=== PATIENT | female | born 1940 | race Caucasian/White ===

== ENCOUNTER 2018-11-07 10:38 | Inpatient (IN) | payer MEDICARE, OTHER ==
[~2018-11-07] VITALS: Ht 147.3 cm; Wt 53.6 kg
[2018-11-07 11:30] LABS: BASOPHILS # (AUTO) 0.1 X10'3 (0-0.2); BASOPHILS % (AUTO) 0.6 % (0-1); EOSINOPHILS % (AUTO) 0.3 % (0-6); HEMATOCRIT 39.8 % (35.0-45.0); HEMOGLOBIN 13.3 g/dl (12.0-16.0); LYMPHOCYTES # (AUTO) 1.5 X10'3 (1.1-4.8); LYMPHOCYTES % (AUTO) 15.1 % (21-51); MEAN CORPUSCULAR HEMOGLOBIN 33.7 PG (27.0-31.0); MEAN CORPUSCULAR HGB CONC 33.5 g/dL (33.0-36.5); MEAN CORPUSCULAR VOLUME 100.5 FL (78-98); MEAN PLATELET VOLUME 11.3 FL (7.4-10.4); MONOCYTES # (AUTO) 0.7 X10'3 (0-0.9); MONOCYTES % (AUTO) 6.6 % (2-12); NEUTROPHILS # (AUTO) 7.8 X10'3 (1.8-7.7); NEUTROPHILS % (AUTO) 77.4 % (42-75); PLATELET COUNT 131 X10'3 (140-440); RED BLOOD COUNT 3.96 X10'6 (4.20-5.60); RED CELL DISTRIBUTION WIDTH 13.3 % (11.5-14.5)
[2018-11-07 11:43] LABS: INR 1.1 INR; PARTIAL THROMBOPLASTIN TIME 25 SECONDS (22-32)
[2018-11-07 11:44] LABS: ALANINE AMINOTRANSFERASE 16 U/L (12-78); ALBUMIN 3.8 G/DL (3.4-5.0); ALBUMIN/GLOBULIN RATIO 1.6 (1.1-1.5); ALKALINE PHOSPHATASE 54 IU/L (46-116); ANION GAP 7 (8-16); ASPARTATE AMINO TRANSFERASE 24 U/L (10-37); BILIRUBIN,TOTAL 0.5 MG/DL (0.1-1.0); BLOOD UREA NITROGEN 13 MG/DL (7-18); BUN/CREATININE RATIO 16.5 (6.6-38.0); CALCIUM 8.8 MG/DL (8.5-10.1); CHLORIDE 107 MMOL/L (99-107); CREATININE 0.79 MG/DL (0.40-0.90); GLUCOSE 133 MG/DL (70-104); SODIUM 143 MMOL/L (135-145); TOTAL CARBON DIOXIDE 29.4 MMOL/L (24-32); TOTAL PROTEIN 6.2 G/DL (6.4-8.2); eGFR 71 ML/MIN
[2018-11-07] MEDS ORDERED: LIDOcaine 1%/PF 5ML 10 MG/ML VIAL ONE (12:47)
[2018-11-07 13:07] VITALS: BP 164/92
[2018-11-07 13:29] VITALS: BP 149/76
[2018-11-07] MEDS ORDERED: morphine 4 MG/ML inj SYRINge IV ONE (13:50)
[2018-11-07] MEDS ORDERED: morphine 2 MG/ML inj. syringe IV ONE (13:55)
[2018-11-07] MEDS ORDERED: acetaminophen 325mg tablet PO PRN (14:40)
[2018-11-07] MEDS ORDERED: mag hydrox/Alum hydrox/simeth 30ml oral suspension PO PRN (14:40)
[2018-11-07] MEDS ORDERED: magnesium hydroxide 30ml (MOM) UD suspension PO PRN (14:40)
[2018-11-07] MEDS: normal saline 1000ml 1,000 ML IV SCH (14:53)
[2018-11-07] MEDS ORDERED: LOSA25TA41 PO (15:03)
[2018-11-07] MEDS ORDERED: MULT1TAB74 PO (15:03)
[2018-11-07] MEDS ORDERED: SERT50TA10 PO (15:03)
[2018-11-07] MEDS ORDERED: CALC-212 PO (15:03)
[2018-11-07] MEDS ORDERED: PANT40TA4 PO (15:03)
[2018-11-07] MEDS ORDERED: TRAZ-219 PO (15:03)
[2018-11-07] MEDS ORDERED: TRAM50TA2 PO (15:03)
[2018-11-07] MEDS ORDERED: APIX5TAB3 PO (15:03)
[2018-11-07] MEDS ORDERED: CALC-854 PO (15:03)
[2018-11-07] MEDS ORDERED: AMLO10TA13 PO (15:03)
[2018-11-07] MEDS ORDERED: ATOR20TA66 PO (15:03)
--- NOTE | 2018-11-07 15:10 | NUR ---
doing well after chest tube placement
--- NOTE | 2018-11-07 16:40 | NUR ---
Patient in room PCU 3023. I have received report from karlie FRIED and had the opportunity to ask questions and assume patient care. vital signs obtained, pt is on 2L NC, chest tube to wall suction with dress CDI, pt alert oriented X4, gave pt call light and oriented pt to room. will continue to monitor.
[2018-11-07 16:45] VITALS: BP 151/73
[2018-11-07] MEDS: HYDROcodone/acetaminophen 5mg/325mg tablet PO PRN (17:15)
[2018-11-07] MEDS ORDERED: non-formulary drug (Trazodone HCl 1 TAB) PO PRN (17:30)
[2018-11-07] MEDS ORDERED: traMADol 50MG tablet PO PRN (17:30)
[2018-11-07] MEDS ORDERED: traZODone 50mg tablet PO PRN (17:35)
--- NOTE | 2018-11-07 18:17 | NUR ---
Problems reprioritized. Patient report given, questions answered & plan of care reviewed with Jackie FRIED.
--- NOTE | 2018-11-07 18:19 | NUR ---
PAGER ID: [phone] MESSAGE: [id number] Soo Nuñez Pt rec 2 mg of Morphine IV push 4 hours ago, and 5 mg of [place], pt still complaining of 8 out of 10 pain. Please call Yelena# [phone] Addendum: 11/07/18 at 1829 by Claude Hunter RN DR. Ramsey called back, new order for morphine PRN.
--- NOTE | 2018-11-07 18:20 | NUR ---
Patient in room PCU 3023. I have received report from Yelena FRIED & Iggy RN and had the opportunity to ask questions and assume patient care.
--- NOTE | 2018-11-07 18:23 | NUR ---
Problems reprioritized. Patient report given, questions answered & plan of care reviewed with Joanna FRIED.
[2018-11-07] MEDS ORDERED: morphine 2 MG/ML inj. syringe IV PRN (18:30)
[2018-11-07 19:00] VITALS: BP 110/64
[2018-11-07 23:00] VITALS: BP 119/54
[2018-11-08] MEDS: HYDROcodone/acetaminophen 5mg/325mg tablet PO PRN ×5 (02:45→23:50)
[2018-11-08 03:00] VITALS: BP 123/58
[2018-11-08] MEDS: normal saline 1000ml 1,000 ML IV SCH ×2 (05:30→19:54)
[2018-11-08 05:47] LABS: BASOPHILS # (AUTO) 0.1 X10'3 (0-0.2); BASOPHILS % (AUTO) 0.8 % (0-1); EOSINOPHILS # (AUTO) 0.1 X10'3 (0-0.9); EOSINOPHILS % (AUTO) 1.3 % (0-6); HEMATOCRIT 36.4 % (35.0-45.0); HEMOGLOBIN 12.2 g/dl (12.0-16.0); LYMPHOCYTES # (AUTO) 1.4 X10'3 (1.1-4.8); MEAN CORPUSCULAR HEMOGLOBIN 33.2 PG (27.0-31.0); MEAN CORPUSCULAR HGB CONC 33.5 g/dL (33.0-36.5); MEAN CORPUSCULAR VOLUME 98.8 FL (78-98); MEAN PLATELET VOLUME 11.3 FL (7.4-10.4); MONOCYTES # (AUTO) 0.5 X10'3 (0-0.9); MONOCYTES % (AUTO) 8.5 % (2-12); NEUTROPHILS # (AUTO) 4.3 X10'3 (1.8-7.7); NEUTROPHILS % (AUTO) 67.4 % (42-75); PLATELET COUNT 107 X10'3 (140-440); RED BLOOD COUNT 3.69 X10'6 (4.20-5.60); RED CELL DISTRIBUTION WIDTH 12.9 % (11.5-14.5); WHITE BLOOD COUNT 6.4 X10'3 (4.5-11.0)
[2018-11-08 05:57] LABS: ALBUMIN 3.1 G/DL (3.4-5.0); ANION GAP 5 (8-16); BLOOD UREA NITROGEN 8 MG/DL (7-18); BUN/CREATININE RATIO 14.3 (6.6-38.0); CALCIUM 8.4 MG/DL (8.5-10.1); CHLORIDE 108 MMOL/L (99-107); CREATININE 0.56 MG/DL (0.40-0.90); GLUCOSE 86 MG/DL (70-104); POTASSIUM 3.6 MMOL/L (3.5-5.1); SODIUM 141 MMOL/L (135-145); TOTAL CARBON DIOXIDE 28.4 MMOL/L (24-32); eGFR > 90 ML/MIN
--- NOTE | 2018-11-08 06:10 | NUR ---
Patient in room PCU 3023. I have received report from Joanna FRIED and had the opportunity to ask questions and assume patient care. Pt resting in no apparent distress, chest tube dressing and surgical wound dressing CDI.
--- NOTE | 2018-11-08 06:15 | NUR ---
Problems reprioritized. Patient report given, questions answered & plan of care reviewed with Yelena FRIED & Iggy RN.
[2018-11-08 06:52] LABS: LARGE PLATELETS FEW; PLATELET ESTIMATE DECREASED
[2018-11-08 07:00] VITALS: BP 125/66
[2018-11-08] MEDS: pantoprazole 40mg Tablet.DR PO SCH (07:23)
[2018-11-08] MEDS: amLODIPine 5mg tablet PO SCH (07:23)
[2018-11-08] MEDS: sertraline 50mg tablet PO SCH (07:24)
[2018-11-08] MEDS ORDERED: non-formulary drug (Multivitamins 1 TAB) PO SCH (08:00)
[2018-11-08] MEDS ORDERED: CALCIUM CITRATE PO SCH (08:00)
[2018-11-08] MEDS ORDERED: VITAMIN D3 PO SCH (08:00)
[2018-11-08] MEDS ORDERED: atorvastatin 20mg tablet PO SCH (08:00)
[2018-11-08] MEDS ORDERED: calcium carbonate/vitamin D3 tablet PO SCH (08:00)
[2018-11-08] MEDS ORDERED: non-formulary drug (Calcium Cmb 2/Mag Cmb 12/Vitd3 (Calcium 500 Mg Tablet) 1 TAB) PO SCH (08:00)
[2018-11-08] MEDS ORDERED: losartan 25mg tablet PO SCH (08:00)
[2018-11-08] MEDS ORDERED: multivitamins, therapeutics tablet PO SCH (08:00)
[2018-11-08] MEDS ORDERED: non-formulary drug (Amlodipine Besylate 1 TAB) PO SCH (08:00)
[2018-11-08 11:00] VITALS: BP 122/59
[2018-11-08 15:00] VITALS: BP 121/63
--- NOTE | 2018-11-08 16:31 | NUR ---
PAGER ID: [phone] MESSAGE: [phone] Soo Nuñez pt very upset needs update about chest tube clamp and x-ray, chest tube has not yet been clamped. Iggy RN [id number]
--- NOTE | 2018-11-08 18:00 | NUR ---
Spoke to Dr. Jj from IR. Per Dr. Jj, day shift nurse for tomorrow is to clamp pt's chest tube at 0800 and repeat chest x-ray at 0900 (one hour later). Dr. Jj stated that he will be in around 0900 tomorrow to read chest x-ray. I put in misc. nursing order and order for chest x-ray for tomorrow at 0900.
--- NOTE | 2018-11-08 18:15 | NUR ---
Patient in room PCU 3023. I have received report from Yelena FRIED & Iggy RN and had the opportunity to ask questions and assume patient care.
--- NOTE | 2018-11-08 18:22 | NUR ---
Problems reprioritized. Patient report given, questions answered & plan of care reviewed with Joanna FRIED.
[2018-11-08 19:00] VITALS: BP 133/66
[2018-11-08] MEDS: calcium carbonate/vitamin D3 tablet PO SCH (20:20)
[2018-11-08] MEDS: atorvastatin 20mg tablet PO SCH (20:20)
[2018-11-08] MEDS: multivitamins, therapeutics tablet PO SCH (20:20)
[2018-11-08] MEDS: losartan 25mg tablet PO SCH (20:20)
[2018-11-08 23:00] VITALS: BP 137/75
[2018-11-09 03:00] VITALS: BP 156/74
[2018-11-09 06:13] LABS: ALBUMIN 3.1 G/DL (3.4-5.0); ANION GAP 8 (8-16); BLOOD UREA NITROGEN 5 MG/DL (7-18); BUN/CREATININE RATIO 12.5 (6.6-38.0); CALCIUM 8.5 MG/DL (8.5-10.1); CHLORIDE 106 MMOL/L (99-107); GLUCOSE 84 MG/DL (70-104); POTASSIUM 3.6 MMOL/L (3.5-5.1); SODIUM 142 MMOL/L (135-145); TOTAL CARBON DIOXIDE 28.4 MMOL/L (24-32); eGFR > 90 ML/MIN
[2018-11-09 06:23] LABS: BASOPHILS % (AUTO) 0.7 % (0-1); EOSINOPHILS # (AUTO) 0.1 X10'3 (0-0.9); EOSINOPHILS % (AUTO) 1.6 % (0-6); HEMATOCRIT 37.8 % (35.0-45.0); HEMOGLOBIN 12.7 g/dl (12.0-16.0); LYMPHOCYTES # (AUTO) 1.3 X10'3 (1.1-4.8); MEAN CORPUSCULAR HEMOGLOBIN 33.4 PG (27.0-31.0); MEAN CORPUSCULAR HGB CONC 33.6 g/dL (33.0-36.5); MEAN CORPUSCULAR VOLUME 99.4 FL (78-98); MONOCYTES # (AUTO) 0.5 X10'3 (0-0.9); MONOCYTES % (AUTO) 8.3 % (2-12); NEUTROPHILS # (AUTO) 4.1 X10'3 (1.8-7.7); NEUTROPHILS % (AUTO) 68.4 % (42-75); PLATELET COUNT 108 X10'3 (140-440)
[2018-11-09 06:30] VITALS: BP 156/74
--- NOTE | 2018-11-09 06:40 | NUR ---
Patient in room PCU 3023. I have received report from CORKY Marshall and had the opportunity to ask questions and assume patient care.
[2018-11-09] MEDS: HYDROcodone/acetaminophen 5mg/325mg tablet PO PRN ×4 (07:12→20:38)
[2018-11-09 07:14] LABS: LARGE PLATELETS FEW; PLATELET ESTIMATE DECREASED
[2018-11-09] MEDS: amLODIPine 5mg tablet PO SCH (08:09)
[2018-11-09] MEDS: pantoprazole 40mg Tablet.DR PO SCH (08:09)
[2018-11-09] MEDS: sertraline 50mg tablet PO SCH (08:09)
--- NOTE | 2018-11-09 09:12 | NUR ---
CXRAY TAKEN. PT C/O SOB. O2 SAT 93 % ON 3L NC. RADIOLOGIST CALLED AND REPORTED LARGE L PNEUMOTHORAX. DR COX INFORMED. CT UNCLAMPED AND AGAIN PLACED ON SUCTION.
[2018-11-09] MEDS: normal saline 1000ml 1,000 ML IV SCH (09:30)
[2018-11-09] MEDS: ondansetron/PF 4mg/2ml inj IV PRN (09:35)
[2018-11-09 11:30] VITALS: BP 99/80
[2018-11-09 15:00] VITALS: BP 121/88
--- NOTE | 2018-11-09 18:10 | NUR ---
Problems reprioritized. Patient report given, questions answered & plan of care reviewed with CORKY Marshall.
[2018-11-09 19:00] VITALS: BP 134/59
[2018-11-09] MEDS: losartan 25mg tablet PO SCH (20:39)
[2018-11-09] MEDS: atorvastatin 20mg tablet PO SCH (20:42)
[2018-11-09] MEDS: multivitamins, therapeutics tablet PO SCH (20:42)
[2018-11-09] MEDS: calcium carbonate/vitamin D3 tablet PO SCH (20:42)
[2018-11-09 23:00] VITALS: BP 125/58
[2018-11-10 03:00] VITALS: BP 149/76
--- NOTE | 2018-11-10 04:30 | NUR ---
Patient went into AFib with heart rate in 130s-140s. Patient asymptomatic at this time. Dr. Friedman was notified and ordered a 10mg IVPush of Cardizem. Will continue to monitor.
[2018-11-10] MEDS ORDERED: diltiazem 5mg/ml 5ml inj. IV STA (04:36)
--- NOTE | 2018-11-10 05:00 | NUR ---
Patient heart rate up to 150-160s. Patient nauseous, SOB, and decreased BP 73/45. Dr. Friedman notified and came to lay eyes on patient. 500cc bolus of NS ordered. Manual BP taken, 108/62. Cardizem drip started at 5mcg. Will continue to monitor.
[2018-11-10] MEDS ORDERED: normal saline 500ml IV soln 500 ML IV ONE (05:15)
[2018-11-10] MEDS ORDERED: diltiazem-D5W 125mg/125ml 125 ML IV SCH (05:20)
[2018-11-10] MEDS ORDERED: proCHLORperazine 10 MG/2 ml inj IV PRN (05:20)
[2018-11-10] MEDS: ondansetron/PF 4mg/2ml inj IV PRN (05:22)
--- NOTE | 2018-11-10 06:05 | NUR ---
Problems reprioritized. Patient report given, questions answered & plan of care reviewed with Leanne FRIED.
[2018-11-10 06:14] LABS: BASOPHILS % (AUTO) 0.6 % (0-1); EOSINOPHILS # (AUTO) 0.2 X10'3 (0-0.9); EOSINOPHILS % (AUTO) 2.5 % (0-6); HEMATOCRIT 40.5 % (35.0-45.0); HEMOGLOBIN 13.5 g/dl (12.0-16.0); LYMPHOCYTES # (AUTO) 1.6 X10'3 (1.1-4.8); LYMPHOCYTES % (AUTO) 22.1 % (21-51); MEAN CORPUSCULAR HEMOGLOBIN 33.4 PG (27.0-31.0); MEAN CORPUSCULAR HGB CONC 33.5 g/dL (33.0-36.5); MEAN CORPUSCULAR VOLUME 99.8 FL (78-98); MEAN PLATELET VOLUME 11.8 FL (7.4-10.4); MONOCYTES # (AUTO) 0.5 X10'3 (0-0.9); MONOCYTES % (AUTO) 6.9 % (2-12); NEUTROPHILS # (AUTO) 4.9 X10'3 (1.8-7.7); NEUTROPHILS % (AUTO) 67.9 % (42-75); PLATELET COUNT 118 X10'3 (140-440); RED BLOOD COUNT 4.06 X10'6 (4.20-5.60); RED CELL DISTRIBUTION WIDTH 13.2 % (11.5-14.5); WHITE BLOOD COUNT 7.2 X10'3 (4.5-11.0)
[2018-11-10 06:18] LABS: ALBUMIN 3.2 G/DL (3.4-5.0); ANION GAP 11 (8-16); BLOOD UREA NITROGEN 10 MG/DL (7-18); BUN/CREATININE RATIO 18.9 (6.6-38.0); CALCIUM 8.8 MG/DL (8.5-10.1); CHLORIDE 105 MMOL/L (99-107); CREATININE 0.53 MG/DL (0.40-0.90); GLUCOSE 111 MG/DL (70-104); POTASSIUM 3.4 MMOL/L (3.5-5.1); SODIUM 141 MMOL/L (135-145); TOTAL CARBON DIOXIDE 25.3 MMOL/L (24-32); eGFR > 90 ML/MIN
[2018-11-10 07:00] VITALS: BP 96/51
[2018-11-10 07:30] LABS: LARGE PLATELETS FEW; PLATELET ESTIMATE DECREASED
[2018-11-10] MEDS: pantoprazole 40mg Tablet.DR PO SCH (07:41)
[2018-11-10] MEDS: sertraline 50mg tablet PO SCH (07:41)
[2018-11-10] MEDS: amLODIPine 5mg tablet PO SCH (07:42)
[2018-11-10] MEDS ORDERED: potassium Cl 40MEQ/NS 500ml 500 ML IV PRN ×2 (09:15)
[2018-11-10] MEDS ORDERED: potassium Cl 20 mEq SR tablet PO PRN (09:15)
[2018-11-10] MEDS: metoprolol tartrate 25mg tablet PO SCH ×2 (10:22→21:16)
[2018-11-10 11:00] VITALS: BP 118/66
--- NOTE | 2018-11-10 13:25 | NUR ---
Patient in room PCU 3023. I have received report from Leanne FRIED and had the opportunity to ask questions and assume patient care.
[2018-11-10] MEDS: potassium Cl 20 mEq SR tablet PO PRN (13:36)
[2018-11-10] MEDS: HYDROcodone/acetaminophen 5mg/325mg tablet PO PRN ×2 (13:37→21:16)
--- NOTE | 2018-11-10 13:37 | NUR ---
Problems reprioritized. Patient report given, questions answered & plan of care reviewed with CORKY Cueto.
[2018-11-10 15:00] VITALS: BP 111/62
[2018-11-10 18:00] VITALS: BP 137/66
--- NOTE | 2018-11-10 18:11 | NUR ---
Problems reprioritized. Patient report given, questions answered & plan of care reviewed with Vee FRIED . Patient stable at transfer of care.
--- NOTE | 2018-11-10 19:08 | NUR ---
Patient in room PCU 3023. I have received report from Nory Noonan and had the opportunity to ask questions and assume patient care.
[2018-11-10] MEDS: calcium carbonate/vitamin D3 tablet PO SCH (21:00)
[2018-11-10] MEDS: multivitamins, therapeutics tablet PO SCH (21:00)
[2018-11-10] MEDS: atorvastatin 20mg tablet PO SCH (21:16)
[2018-11-10] MEDS: losartan 25mg tablet PO SCH (21:18)
[2018-11-10 23:00] VITALS: BP 131/65
[2018-11-11 03:00] VITALS: BP 126/63
[2018-11-11] MEDS: potassium Cl 20 mEq SR tablet PO PRN (03:11)
[2018-11-11 05:35] LABS: BASOPHILS % (AUTO) 0.9 % (0-1); EOSINOPHILS # (AUTO) 0.2 X10'3 (0-0.9); EOSINOPHILS % (AUTO) 4.1 % (0-6); HEMATOCRIT 38.4 % (35.0-45.0); LYMPHOCYTES # (AUTO) 1.3 X10'3 (1.1-4.8); LYMPHOCYTES % (AUTO) 22.9 % (21-51); MEAN CORPUSCULAR HEMOGLOBIN 33.6 PG (27.0-31.0); MEAN CORPUSCULAR HGB CONC 33.8 g/dL (33.0-36.5); MEAN CORPUSCULAR VOLUME 99.3 FL (78-98); MEAN PLATELET VOLUME 11.6 FL (7.4-10.4); MONOCYTES # (AUTO) 0.5 X10'3 (0-0.9); MONOCYTES % (AUTO) 8.9 % (2-12); NEUTROPHILS # (AUTO) 3.6 X10'3 (1.8-7.7); NEUTROPHILS % (AUTO) 63.2 % (42-75); PLATELET COUNT 125 X10'3 (140-440); RED BLOOD COUNT 3.86 X10'6 (4.20-5.60); RED CELL DISTRIBUTION WIDTH 12.9 % (11.5-14.5); WHITE BLOOD COUNT 5.7 X10'3 (4.5-11.0)
[2018-11-11 05:44] LABS: ALBUMIN 3.1 G/DL (3.4-5.0); ANION GAP 4 (8-16); BLOOD UREA NITROGEN 10 MG/DL (7-18); BUN/CREATININE RATIO 18.2 (6.6-38.0); CALCIUM 8.9 MG/DL (8.5-10.1); CHLORIDE 106 MMOL/L (99-107); CREATININE 0.55 MG/DL (0.40-0.90); GLUCOSE 89 MG/DL (70-104); POTASSIUM 4.2 MMOL/L (3.5-5.1); SODIUM 141 MMOL/L (135-145); TOTAL CARBON DIOXIDE 30.7 MMOL/L (24-32); eGFR > 90 ML/MIN
[2018-11-11 06:00] VITALS: BP 128/58
--- NOTE | 2018-11-11 06:15 | NUR ---
Patient in room PCU 3023. I have received report from Vee FRIED and had the opportunity to ask questions and assume patient care.
--- NOTE | 2018-11-11 06:24 | NUR ---
Problems reprioritized. Patient report given, questions answered & plan of care reviewed with Lisbeth FRIED.
[2018-11-11] MEDS: metoprolol tartrate 25mg tablet PO SCH (07:21)
[2018-11-11] MEDS: pantoprazole 40mg Tablet.DR PO SCH (07:22)
[2018-11-11] MEDS: HYDROcodone/acetaminophen 5mg/325mg tablet PO PRN ×2 (07:22→12:18)
[2018-11-11] MEDS: sertraline 50mg tablet PO SCH (07:23)
[2018-11-11] MEDS: amLODIPine 5mg tablet PO SCH (07:23)
--- NOTE | 2018-11-11 10:00 | NUR ---
Paged Dr Ramsey "PAGER ID: [phone] MESSAGE: [phone] Lisbeth [id number] Soo Nuñez report is up on the CXR."
[2018-11-11 11:00] VITALS: BP 115/60
[2018-11-11] MEDS ORDERED: HYDR-4383 PO (11:42)
[2018-11-11] MEDS ORDERED: METO-395 PO (11:42)
--- NOTE | 2018-11-11 13:01 | NUR ---
Paged Dr Ramsey "PAGER ID: [phone] MESSAGE: [phone] Lisbeth [phone] Soo Nuñez Chest tube was removed, follow up CXR was completed and has been read. I didn't want to discharge her until I got the okay after the follow up xray"
--- NOTE | 2018-11-11 14:24 | NUR ---
Paged Dr Ramsey "PAGER ID: [phone] MESSAGE: [phone] Lisbeth [phone] Soo Nuñez I need a triplicate for patient's [place] order for DC and want to know when the patient should restart her eliquis now that the chest tube is out"
--- NOTE | 2018-11-11 15:54 | NUR ---
Patient discharged home in stable condition. IV removed, cannula intact. Tele monitor DCed and returned to telecommunications analyst. Pacemaker Site and Chest tube site dressings changed under sterile technique. All discharge instructions reviewed with no further questions. Patient taken to personal vehicle via wheel chair with all belongings on person including [place] 5/325 prescription.
== END 2018-11-11 15:34 | disposition home or self-care (01) | DRG 201 ==
LOC: ER 10:38 → PCU 3S 16:31 → CMPBEDREQ 11-10 00:21
PROVIDERS: ADMIT Family Medicine; ATTEND Family Medicine
PROC: 0W9B30Z Drainage of Left Pleural Cavity with Drainage Device, Percutaneous Approach (ICD-10-PCS; principal; 2018-11-07)
DX: J95.811 Postprocedural pneumothorax (principal); I48.91 Unspecified atrial fibrillation; I10 Essential (primary) hypertension; E78.5 Hyperlipidemia, unspecified; F32.9 Major depressive disorder, single episode, unspecified; F17.210 Nicotine dependence, cigarettes, uncomplicated; K21.9 Gastro-esophageal reflux disease without esophagitis; Z95.0 Presence of cardiac pacemaker; Z90.49 Acquired absence of other specified parts of digestive tract
CPT/HCPCS: 32557; 36415; 71045; 80048; 80053; 85025; 85610; 85730; 87070; 93005; 96361; 96374; 97110; 97116; 97161; 97530; 99285; G0378; J2001; J2270; J2405; J3490; J7030

== ENCOUNTER 2018-11-11 21:00 | Inpatient (IN) | payer MEDICARE, OTHER | END 2018-11-16 11:20 | disposition home or self-care (01) | LOC: SUR 3N 11-12 00:52 → ER 21:00 | DX: J93.9 Pneumothorax, unspecified (principal); I48.91 Unspecified atrial fibrillation; I10 Essential (primary) hypertension; E78.5 Hyperlipidemia, unspecified; Z95.0 Presence of cardiac pacemaker; K21.9 Gastro-esophageal reflux disease without esophagitis ==

== ENCOUNTER → 2025-02-06 | Outpatient (CLI) | payer MEDICARE, OTHER ==
[~2025-02-06] MED LIST: AMIO200T76 PO; AMLO10TA13 PO; APIX5TAB3 PO; ATOR20TA66 PO; CALC-212 PO; CALC-854 PO; CARCD120C PO; DILT120T3 PO; LOSA50TA64 PO; MULT-620 PO; PANT40TA54 PO; POTA-207 PO; SERT-433 PO; TRAM50TA2 PO; TRAZ-256 PO; VENL37.589 PO; fentaNYL/PF 50MCG/1 ML 2ML syringe ONE; midazolam 1 mg/ML 2ml injection ONE
[2025-02-06 11:59] LABS: MEAN PLATELET VOLUME 11.5 FL (7.4-10.4); RED CELL DISTRIBUTION WIDTH 13.3 % (11.5-14.5)
[2025-02-06 12:08] LABS: APTT 32 SECONDS (22-32); INR 1.1 INR
[2025-02-06 12:10] LABS: CHOL/HDL RATIO 1.6 (0.00-4.99); CREATININE 1.13 MG/DL (0.40-0.90); LDL CHOLESTEROL 38 MG/DL (50-100); TOTAL CARBON DIOXIDE 30.3 MMOL/L (24-32); eGFR 46 ML/MIN
[2025-02-06 12:19] LABS: PLATELET ESTIMATE NORMAL
[2025-02-06 12:20] LABS: LARGE PLATELETS FEW
== END | disposition home or self-care (01) ==
LOC: LAB 11:27 → EDSTATUS 02-10 15:30
PROVIDERS: ATTEND Student in an Organized Health Care Education/Training Program
DX: I48.0 Paroxysmal atrial fibrillation (principal); E78.5 Hyperlipidemia, unspecified; I10 Essential (primary) hypertension
CPT/HCPCS: 36415; 80048; 80061; 83695; 85008; 85025; 85610; 85730; J2250; J3010